=== PATIENT | female | born 1990 | race American Indian/Alaskan Native ===

== ENCOUNTER 2016-08-05 18:55 | Emergency (ER) | payer SELFPAY ==
[2016-08-05 18:55] VITALS: BMI 35.7
[2016-08-05 19:04] VITALS: BP 105/72; PULSE 90; RESP 20; TEMP 98.2; O2SAT 97
--- NOTE | 2016-08-05 19:37 | C.PDOC ---
Time Seen by Provider: 08/05/16 19:36 Chief Complaint (Nursing): Abdominal Pain Past Medical History Vital Signs: Last Vital Signs Temp 98.2 F 08/05/16 19:01 Pulse 90 08/05/16 19:01 Resp 20 08/05/16 19:01 BP 105/72 08/05/16 19:01 Pulse Ox 97 08/05/16 19:37 Family History: States: Unknown Family Hx - Social History Hx Alcohol Use: Yes Hx Substance Use: No - Immunization History Hx Tetanus Toxoid Vaccination: No Hx Influenza Vaccination: No Hx Pneumococcal Vaccination: No ED Course And Treatment O2 Sat by Pulse Oximetry: 97
== END 2016-08-05 19:48 | disposition left against medical advice (07) ==
LOC: C.ER 18:55
DX: Z02.89 Encounter for other administrative examinations (principal); R10.9 Unspecified abdominal pain

== ENCOUNTER 2017-10-22 16:58 | Emergency (ER) | payer SELFPAY ==
[2017-10-22 16:58] VITALS: BMI 35.7
[2017-10-22 17:12] VITALS: O2SAT 98
[2017-10-22] MEDS ORDERED: Sodium Chloride 0.9% 1,000 ML IV ONE ×2 (17:52→17:56)
--- NOTE | 2017-10-22 18:26 | C.PDOC ---
History Of Present Illness 27-year-old female, presents to the emergency department with complaints of abdominal pain, nausea and episodes non-bloody initially and eventually blood- tinged vomiting that she thinks she developed from something she ate. She denies diarrhea, fever, chills, chest pain, back pain symptoms or any other associated symptoms. No other complaint at this time. Time Seen by Provider: 10/22/17 17:47 Chief Complaint (Nursing): Abdominal Pain History Per: Patient History/Exam Limitations: no limitations Current Symptoms Are (Timing): Still Present Severity: Moderate Past Medical History Reviewed: Historical Data, Nursing Documentation, Vital Signs Vital Signs: Last Vital Signs Temp 99.4 F 10/22/17 17:09 Pulse 108 H 10/22/17 17:09 Resp 18 10/22/17 17:09 BP 97/65 L 10/22/17 17:09 Pulse Ox 98 10/22/17 18:57 Family History: States: No Known Family Hx - Social History Hx Alcohol Use: Yes Hx Substance Use: No - Immunization History Hx Tetanus Toxoid Vaccination: No Hx Influenza Vaccination: No Hx Pneumococcal Vaccination: No Review Of Systems Constitutional: Negative for: Fever, Chills Gastrointestinal: Positive for: Nausea, Vomiting, Abdominal Pain (suprapubic, epigastric). Negative for: Diarrhea Genitourinary: Negative for: Dysuria, Frequency Physical Exam - Physical Exam Appears: Non-toxic, No Acute Distress Skin: Normal Color, Warm, Dry, No Rash Head: Atraumatic, Normacephalic Eye(s): bilateral: Normal Inspection, PERRL, EOMI Nose: Normal Oral Mucosa: Moist Lips: Normal Appearing Neck: Normal ROM Cardiovascular: Rhythm Regular, No Murmur Respiratory: Normal Breath Sounds, No Accessory Muscle Use Gastrointestinal/Abdominal: Soft, Tenderness (epigastric, suprapubic), No Guarding, No Rebound Back: Normal Inspection Extremity: Normal ROM, No Deformity Neurological/Psych: Oriented x3, Normal Speech ED Course And Treatment - Laboratory Results Result Diagrams: 10/22/17 18:26 O2 Sat by Pulse Oximetry: 98 Pulse Ox Interpretation: Normal (RA) Medical Decision Making Medical Decision Making: Plan: * Bloodwork * XR Abdomen * Pepcid, IVFs, Zofran * UA * Reassess and Disposition * * abdominal pain - case s/o to DR. Morton at 1900 pending labs, reevaluation and disposition Disposition - Disposition Disposition Time: 19:00 Condition: STABLE Forms: [facility] (Mohawk) - Clinical Impression Clinical Impression: Abdominal pain - Scribe Statement The provider has reviewed the documentation as recorded by the Scribe (Jason Ayon) Provider Attestation: All medical record entries made by the Scribe were at my direction and personally dictated by me. I have reviewed the chart and agree that the record accurately reflects my personal performance of the history, physical exam, medical decision making, and the department course for this patient. I have also personally directed, reviewed, and agree with the discharge instructions and disposition.
[2017-10-22] MEDS ORDERED: Sodium Chloride 0.9% 1,000 ML ONE (18:27)
[2017-10-22 18:32] LABS: BASO # 0.1 K/uL (0.0-0.2); BASO % 0.5 % (0.0-2.0); EOS # 0.2 K/uL (0.0-0.7); EOS % 1.8 % (0.0-4.0); HEMOGLOBIN 11.6 g/dL (11.0-16.0); LYMPH # 2.1 K/uL (1.0-4.3); LYMPH % 20.5 % (20.0-40.0); MEAN CORPUSCULAR HEMOGLOBIN 28.1 pg (27.0-31.0); MEAN CORPUSCULAR HGB CONC 32.7 g/dL (33.0-37.0); MEAN PLATELET VOLUME 7.9 fL (7.2-11.7); MONO # 0.5 K/uL (0.0-0.8); NEUT # 7.4 K/uL (1.8-7.0); NEUT % 72.2 % (50.0-75.0); NRBC % 0.1 % (0.0-2.0); RBC 4.13 Mil/uL (3.80-5.20); RED CELL DISTRIBUTION WIDTH 13.1 % (11.5-14.5); WHITE BLOOD COUNT 10.3 K/uL (4.8-10.8)
[2017-10-22 18:35] LABS: SQUAMOUS EPITHIAL 13 /hpf (0-5); URINE BACTERIA OCC (<OCC); URINE BILIRUBIN NEGATIVE (NEGATIVE); URINE BLOOD NEGATIVE (NEGATIVE); URINE CLARITY Hazy (Clear); URINE COLOR YELLOW (YELLOW); URINE GLUCOSE (UA) NORMAL (Normal); URINE LEUKOCYTE ESTERASE NEG Leu/uL (Negative); URINE PROTEIN 1+ mg/dL (NEGATIVE)
[2017-10-22 19:01] LABS: ALB/GLOB RATIO 1.2 (1.0-2.1); ALBUMIN 3.9 g/dL (3.5-5.0); ALT/SGPT 21 U/L (9-52); AST/SGOT 25 U/L (14-36); BLOOD UREA NITROGEN 14 mg/dL (7-17); CALCIUM 9.2 mg/dl (8.6-10.4); GFR NON-AFRICAN AMERICAN > 60; LIPASE 64 U/L (23-300)
[2017-10-22 20:12] VITALS: BP 112/71; PULSE 78; RESP 16; TEMP 98.1
--- NOTE | 2017-10-23 08:57 | RAD ---
Date of service: 10/22/2017 PROCEDURE: Radiographs of the chest and abdomen (obstructive series) HISTORY: Abdominal pain COMPARISON: No prior. TECHNIQUE: AP radiograph of the chest, with upright and supine radiographs of the abdomen. FINDINGS: CHEST: Lungs: The lungs are well inflated and clear. Cardiovascular: Normal size heart. No pulmonary vascular congestion. Pleura: No pleural fluid. No pneumothorax. Other findings: None. ABDOMEN AND PELVIS: Bowel: There is large amount of stool in the colon and rectum. No evidence of mechanical obstruction. Free air: None. Bones: Unremarkable. Other findings: None. IMPRESSION: Constipation. No evidence of bowel obstruction. Clear lungs.
== END 2017-10-22 20:12 | disposition home or self-care (01) ==
LOC: C.ER 16:58
DX: R10.13 Epigastric pain (principal)
CPT/HCPCS: 74022; 80053; 81001; 83690; 84703; 85025; 96361; 96374; 96375; 99284; J2405; J7030

== ENCOUNTER 2017-11-11 23:24 | Emergency (ER) | payer SELFPAY ==
[2017-11-11 23:24] VITALS: BMI 35.7
[2017-11-11 23:33] VITALS: RESP 20
--- NOTE | 2017-11-12 01:09 | C.PDOC ---
Addendum entered and electronically signed by Carlie Short PA 11/12/17 06:18: Addendum Addendum: 11/12/17 06:04 posterior splint was applied to patient's left lower leg by clinical provider, checked by me. per and post sensation intact, compartment soft. pt given crutch instructions. Addendum entered and electronically signed by Carlie Short PA 11/12/17 05:53: Orthopedic Care - Ambulation Aids Ambulation Aids: Adult Crutches Original Note: History Of Present Illness 27 year old female presents to the ED complaining of left ankle pain status post slipping on wet floor and falling to knees and then backwards. She denies any head injury, LOC, or any other trauma. She reports she is unable to bear weight on her left leg due to pain. She denies any numbness, weakness, or tingling. Time Seen by Provider: 11/11/17 23:36 Chief Complaint (Nursing): Lower Extremity Problem/Injury History Per: Patient History/Exam Limitations: no limitations Onset/Duration Of Symptoms: Hrs Current Symptoms Are (Timing): Still Present - Ankle/Foot Description Of Injury: Fell Currently Unable To: Bear Weight Past Medical History Reviewed: Historical Data, Nursing Documentation, Vital Signs Vital Signs: Last Vital Signs Temp 99 F 11/11/17 23:24 Pulse 63 11/11/17 23:24 Resp 20 11/11/17 23:24 BP 109/76 11/11/17 23:24 Pulse Ox 100 11/11/17 23:24 - Medical History PMH: No Chronic Diseases Surgical History: No Surg Hx Family History: States: No Known Family Hx - Social History Hx Alcohol Use: No Hx Substance Use: No - Immunization History Hx Tetanus Toxoid Vaccination: No Hx Influenza Vaccination: No Hx Pneumococcal Vaccination: No Review Of Systems Musculoskeletal: Positive for: Foot Pain (left) Neurological: Negative for: Weakness, Numbness Physical Exam - Physical Exam Appears: Non-toxic Skin: Warm, Dry Head: Normacephalic Eye(s): bilateral: Normal Inspection, PERRL, EOMI Neck: Normal ROM Chest: Symmetrical Cardiovascular: Rhythm Regular Respiratory: Normal Breath Sounds, No Rales, No Rhonchi, No Wheezing Extremity: Normal ROM, Tenderness (Diffused tenderness to lateral and medial aspect of left foot. tenderness to dorsum aspect of left foot proximal to metatarsals. Popliteal fossa tenderness), Capillary Refill (less than 2 sec to left ankle ), Swelling (Mild swelling to B/L malleoli ) Extremity: Bilateral: Normal Color And Temperature, Normal ROM Pulses: Left Dorsalis Pedis: Normal, Right Dorsalis Pedis: Normal Neurological/Psych: Oriented x3, Normal Speech, Normal Motor, Normal Sensation, Normal Reflexes Gait: Steady ED Course And Treatment O2 Sat by Pulse Oximetry: 100 (RA) Pulse Ox Interpretation: Normal Medical Decision Making Medical Decision Making: Orders: - XR Left knee - XR left ankle - XR left foot - Tylenol 975mg PO no fractures noted on foot, knee or ankle films. posterior splint and crutches given. d/c hoe with tylenol and ppodiatry f/u Disposition Counseled Patient/Family Regarding: Studies Performed, Diagnosis, Need For Followup, Rx Given - Disposition Referrals: [facility] [Outside] [facility] at [place] [Outside] Podiatry Clinic [Outside] Disposition: HOME/ ROUTINE Disposition Time: 01:09 Condition: GOOD Additional Instructions: Please no weight bearing on left foot. Keep elevated when possible. Apply cold compresses over splint, Keep splint clean and dry- cover when bathing with plastic. Follow up with either podiatry clinic in [place], podiatry clinic at [facility] (call med clinic to make appt) or Ortho Clinic. Tylenol for pain. Prescriptions: Acetaminophen [Tylenol 325mg tab] 650 mg PO Q4 #50 tab Instructions: Ankle Sprain (DC), How to Use Crutches Forms: [facility] (Croatian), General Discharge Instructions - Clinical Impression Clinical Impression: Left ankle sprain - PA / [employer] / Resident Statement MD/DO has reviewed & agrees with the documentation as recorded. - Scribe Statement The provider has reviewed the documentation as recorded by the Miquel Torres All medical record entries made by the Miquel were at my direction and personally dictated by me. I have reviewed the chart and agree that the record accurately reflects my personal performance of the history, physical exam, medical decision making, and the department course for this patient. I have also personally directed, reviewed, and agree with the discharge instructions and disposition.
[2017-11-12 01:22] VITALS: BP 100/65; PULSE 88; TEMP 98
[2017-11-12 04:34] VITALS: O2SAT 100
--- NOTE | 2017-11-12 07:53 | RAD ---
Date of service: 11/12/2017 PROCEDURE: Left Ankle Radiographs. HISTORY: twisted ankle COMPARISON: None FINDINGS: BONES: Normal. No fracture. JOINTS: Normal. No osteoarthritis. Ankle mortise maintained. Talar dome intact SOFT TISSUES: Diffuse swelling OTHER FINDINGS: None. IMPRESSION: No fracture or dislocation is suggested. Mild soft tissue swelling in the area of interest is noted.
--- NOTE | 2017-11-12 07:54 | RAD ---
Date of service: 11/12/2017 PROCEDURE: Left Foot Radiographs. HISTORY: twisted foot pain to 4th metatarsal COMPARISON: None. FINDINGS: BONES: Normal. No fracture. JOINTS: Normal. SOFT TISSUES: Normal. OTHER FINDINGS: None. IMPRESSION: No fracture or dislocation is suggested.
--- NOTE | 2017-11-12 07:55 | RAD ---
Date of service: 11/12/2017 PROCEDURE: Left Knee Radiographs. HISTORY: Pain. COMPARISON: None. FINDINGS: BONES: Normal. No fracture. JOINTS: Normal. No osteoarthritis. JOINT EFFUSION: No definitive effusion-large body habitus noted OTHER FINDINGS: None IMPRESSION: No fracture or lytic lesion.
== END 2017-11-12 01:22 | disposition home or self-care (01) ==
LOC: C.ER 23:24
DX: S93.402A Sprain of unspecified ligament of left ankle, initial encounter (principal); W01.0XXA Fall on same level from slipping, tripping and stumbling without subsequent striking against object, initial encounter; Y92.9 Unspecified place or not applicable